=== PATIENT | female | born 1990 | race Caucasian/White ===

== ENCOUNTER 2017-05-26 19:50 | Emergency (ER) | payer OTHER ==
[~2017-05-26] VITALS: Ht 160 cm; Wt 76.4 kg
[2017-05-26 19:53] VITALS: TEMP 36.7; Ht 160 cm; Wt 76.4 kg
--- NOTE | 2017-05-26 20:21 | EMERGENCY ROOM VISIT NOTE ---
History Report prepared by Anjali: Vanessa Gaona Under the Supervision of: Dr. Herman Phillips M.D. First contact with patient: 19:59 Chief Complaint: MENTAL HEALTH EVALUATION Stated Complaint: MHU History of Present Illness The patient is a 26 year old female who presents to the Emergency Room for a mental health evaluation. The patient has a history of bipolar depression with PTSD. She has been on medication for this in the past but states that she has been off of her medication for about one year. She has been hospitalized for mental health issues in the past. She states that she was admitted voluntarily for two weeks about one year ago after a suicide attempt. The patient recently moved to the area about 3 months ago. She has been having weekly appointments with a counselor through [facility]. She saw her counselor two days ago for her weekly appointment and at that time her counselor recommended that she come to the ED for further evaluation. The patient states that she has been having increasing mood swings and night terrors. She states that, "I can't control my panic attacks any more." She reports worsening anxiety. She denies anything triggering her worsening symptoms. She has been picking at her skin and states that this is also getting worse. The patient denies suicidal or homicidal ideation. The patient states that she feels like she needs to be hospitalized at this point because she knows that her symptoms will continue to worsen if she does not go back on her medications. Source of History: patient Onset: [employer] Position: other (global) Quality: other (anxiety) Timing: worsening Note: Pt notes mood swings, night terrors, and panic attacks. Pt denies SI and HI. Review of Systems See HPI for pertinent positives & negatives. A total of 10 systems reviewed and were otherwise negative. Past Medical & Surgical Medical Problems: (1) Bipolar depression (2) History of kidney stones (3) Hx of ovarian cyst (4) PTSD (post-traumatic stress disorder) Family History Cancer Diabetes mellitus Hypertension Seizures Social History Smoking Status: Current Every Day Smoker Marital Status: in relationship Housing Status: lives with significant other Occupation Status: employed Current/Historical Medications Scheduled Trazodone Hcl (Trazodone), 25 MG PO QD Allergies Coded Allergies: Apple (Verified Allergy, Unknown, migraine, 05/26/17) [place] (Verified Allergy, Unknown, swelling, 05/26/17) [place] (Verified Allergy, Unknown, swelling, 05/26/17) Eggs or Egg-derived Products (Verified Adverse Reaction, Unknown, migraines, 05/26/17) Physical Exam Vital Signs Date Time Temp Pulse Resp B/P (MAP) Pulse Ox O2 Delivery O2 Flow Rate FiO2 05/27/17 00:29 87 18 114/86 98 05/26/17 21:53 76 18 111/57 98 Room Air 05/26/17 19:53 36.7 86 18 127/82 98 Room Air Physical Exam GENERAL: Patient is in no acute distress. Slightly tearful at times discussing her situation HEENT: No acute trauma, normocephalic atraumatic, mucous membranes moist, no nasal congestion, no scleral icterus. NECK: No stridor, no adenopathy, no meningismus, trachea is midline. LUNGS: Clear to auscultation bilaterally, no wheeze, no rhonchi, breath sounds equal. HEART: Without murmurs gallops or rubs, regular rate and rhythm. ABDOMEN: Soft, nontender, bowel sounds positive, no hernias, no peritonitis. EXTREMITIES: No cyanosis or edema, full range of motion of all the joints without pain or difficulty, no signs for acute trauma. NEUROLOGIC: Oriented x 3, no acute motor or sensory deficits, no focal weakness. SKIN: No rash, no jaundice, no diaphoresis. PSYCH: Cooperative and voluntary, admits to suicidal thoughts with no set plan. Medical Decision & Procedures Laboratory Results 05/26/17 20:57 05/26/17 20:57 Test 05/26/17 20:20 05/26/17 20:57 Urine Color YELLOW Urine Appearance CLEAR (CLEAR) Urine pH 6.0 (4.5-7.5) Urine Specific [place] 1.020 (1.000-1.030) Urine Protein NEG (NEG) Urine Glucose (UA) NEG (NEG) Urine Ketones NEG (NEG) Urine Occult Blood NEG (NEG) Urine Nitrite NEG (NEG) Urine Bilirubin NEG (NEG) Urine Urobilinogen NEG (NEG) Urine Leukocyte Esterase NEG (NEG) Urine Opiates Screen NEG (NEG) Urine Methadone, Qualitative NEG (NEG) Urine Barbiturates NEG (NEG) Urine Phencyclidine (PCP) Level NEG (NEG) Ur Amphetamine/Methamphetamine NEG (NEG) MDMA (Ecstasy) Screen NEG (NEG) Urine Benzodiazepines Screen NEG (NEG) Urine Cocaine Metabolite NEG (NEG) Urine Marijuana (THC) POS (NEG) Red Blood Count 3.97 M/uL (4.2-5.4) Mean Corpuscular Volume 84.9 fL (80-100) Mean Corpuscular Hemoglobin 27.7 pg (25-34) Mean Corpuscular Hemoglobin Concent 32.6 g/dl (32-36) RDW Standard Deviation 41.2 fL (36.4-46.3) RDW Coefficient of Variation 13.3 % (11.5-14.5) Mean Platelet Volume 10.6 fL (7.4-10.4) Anion Gap 7.0 mmol/L (3-11) Est Creatinine Clear Calc Drug Dose 107.0 ml/min Estimated GFR () 121.6 Estimated GFR (Non- 104.9 BUN/Creatinine Ratio 12.3 (10-20) Calcium Level 8.2 mg/dl (8.5-10.1) Total Bilirubin < 0.1 mg/dl (0.2-1) Aspartate Amino Transf (AST/SGOT) 10 U/L (15-37) Alanine Aminotransferase (ALT/SGPT) 16 U/L (12-78) Alkaline Phosphatase 65 U/L (45-117) Total Protein 6.6 gm/dl (6.4-8.2) Albumin 3.2 gm/dl (3.4-5.0) Globulin 3.4 gm/dl (2.5-4.0) Albumin/Globulin Ratio 0.9 (0.9-2) Thyroid Stimulating Hormone (TSH) 1.140 uIu/ml (0.300-4.500) Human Chorionic Gonadotropin, Qual NEG (NEG) Salicylates Level 3.3 mg/dl (2.8-20) Acetaminophen Level < 2 ug/ml (10-30) Ethyl Alcohol mg/dL < 3.0 mg/dl (0-3) Laboratory results reviewed by me. Medications Administered Medications (Trade) Dose Ordered Sig/Angela Route Start Time Stop Time Status Last Admin Dose Admin Trazodone HCl (Desyrel Tab) 25 mg NOW ONCE PO 05/27/17 00:15 05/27/17 00:16 DC 05/27/17 00:19 25 MG ED Course 1958: The patient was evaluated in room C3. A complete history and physical exam was performed. 0015: Trazodone HCl 25 mg PO 2300: [facility] will evaluate the patient. 0004: I discussed the patient's case with the psychiatric liaison. 0019: I reassessed the patient at this time. She is resting comfortably. I discussed the results and treatment plan with the patient. I answered all pertaining questions that she had. She expressed understanding and verbalized agreement. The patient will be discharged home and will return with worsening symptoms. Medical Decision Differential diagnoses includes drug and alcohol abuse, medication noncompliance , thyroid disorder, electrolyte imbalance, . There is no leukocytosis or concerning anemia. No significant electrolyte abnormality, kidney failure or hepatitis. The patient appears to be in a euthyroid state. testing is negative. Urinalysis does not show infection. Aspirin, Tylenol and alcohol levels are undetectable. Urine tox shows marijuana only. The patient was voluntary. She was having vague suicidal thoughts and was anxious but had no plan or intent to harm herself. She was felt medically clear to be seen by psychiatry. She was seen by the psychiatry team, the patient does not meet criteria to stay in the hospital this evening. She does feel comfortable with discharge home, she will return if worsening. She did ask for some trazodone to help with sleep, she has used this before successfully. She was given a dose of oral trazodone before discharge and a small prescription was written. Medication Reconcilliation Current Medication List: was personally reviewed by me Blood Pressure Screening Patient's blood pressure: Normal blood pressure Impression Primary Impression: Anxiety Scribe Attestation The scribe's documentation has been prepared under my direction and personally reviewed by me in its entirety. I confirm that the note above accurately reflects all work, treatment, procedures, and medical decision making performed by me. Departure Information Dispostion Home / Self-Care Prescriptions Trazodone Hcl (Trazodone) 50 Mg Tab 25 MG PO QD for 10 Days, #5 TAB Prov: Herman Phillips M.D. 05/27/17 Referrals No Doctor Assigned Forms HOME CARE DOCUMENTATION FORM, IMPORTANT VISIT INFORMATION Patient Instructions My [facility] Additional Instructions trazadone at night to help with sleep return for worsening symptoms as discussed lab testing today was all ok follow the advice of the psychiatric team that spoke with you kaden
[2017-05-26 20:39] LABS: URINE APPEARANCE CLEAR (CLEAR); URINE BILIRUBIN NEG (NEG); URINE COLOR YELLOW; URINE NITRITE NEG (NEG); UROBILINOGEN NEG (NEG); ZZUR CULT IF INDIC CLEAN CATCH NO
[2017-05-26 20:45] LABS: MANUAL MICROSCOPIC REQUIRED? NO; REVIEW REQ? NO
[2017-05-26 21:08] LABS: HEMATOCRIT 33.7 % (37-47); MEAN CELL VOLUME 84.9 fL (80-100); MEAN CORPUSCULAR HEMOGLOBIN 27.7 pg (25-34); MEAN CORPUSCULAR HGB CONC 32.6 g/dl (32-36); MEAN PLATELET VOLUME 10.6 fL (7.4-10.4); PLATELET COUNT 210 K/uL (130-400); RED BLOOD COUNT 3.97 M/uL (4.2-5.4); WHITE BLOOD COUNT 7.16 K/uL (4.8-10.8)
[2017-05-26 21:19] LABS: BENZODIAZEPINE, URINE NEG (NEG); COCAINE,URINE NEG (NEG); PHENCYCLIDINE, URINE NEG (NEG)
[2017-05-26 21:26] LABS: ALT/SGPT 16 U/L (12-78); BLOOD UREA NITROGEN 10 mg/dl (7-18); BUN/CREATININE RATIO 12.3 (10-20); CALCIUM 8.2 mg/dl (8.5-10.1); CARBON DIOXIDE 25 mmol/L (21-32); CHLORIDE 109 mmol/L (98-107); CREATININE 0.78 mg/dl (0.60-1.20); GLUCOSE 96 mg/dl (70-99); POTASSIUM 4.1 mmol/L (3.5-5.1); SODIUM 141 mmol/L (136-145)
[2017-05-26 21:37] LABS: ALB/GLOB RATIO 0.9 (0.9-2); ALKALINE PHOSPHATASE 65 U/L (45-117); AST/SGOT 10 U/L (15-37)
[2017-05-26 21:48] LABS: ACETAMINOPHEN < 2 ug/ml (10-30)
[2017-05-26 23:11] LABS: PREG INTERNAL NEGATIVE QC NEG CLEAR BACKGROUND; PREG INTERNAL POSITIVE QC POS CONTROL LINE
[2017-05-27] MEDS ORDERED: TRAZ50TA35 PO (00:10)
[2017-05-27] MEDS ORDERED: TRAZODONE HCL 50 MG TAB PO ONE (00:15)
[2017-05-27 00:29] VITALS: BP 114/86; PULSE 87; O2SAT 98
== END 2017-05-27 00:31 | disposition home or self-care (01) ==
LOC: C.EDB 19:51 → C.EDC 05-27 00:31
DX: F41.9 Anxiety disorder, unspecified (principal); F31.9 Bipolar disorder, unspecified; F43.10 Post-traumatic stress disorder, unspecified; Z83.3 Family history of diabetes mellitus; Z82.49 Family history of ischemic heart disease and other diseases of the circulatory system; Z82.0 Family history of epilepsy and other diseases of the nervous system; F17.200 Nicotine dependence, unspecified, uncomplicated

== ENCOUNTER 2017-05-27 10:12 | Emergency (ER) | payer OTHER ==
[~2017-05-27] VITALS: Ht 160 cm; Wt 75.3 kg
[~2017-05-27 10:12] MED LIST: TRAZ50TA35 PO
[2017-05-27 10:16] VITALS: TEMP 36.8; Ht 160 cm; Wt 75.3 kg
[2017-05-27 11:37] VITALS: BP 114/78; PULSE 98; O2SAT 98
--- NOTE | 2017-05-27 11:56 | EMERGENCY ROOM VISIT NOTE ---
History Report prepared by Jerryibe: Olimpia Tracy Under the Supervision of: Dr. Salinas Mcgraw D.O. First contact with patient: 11:06 Chief Complaint: MENTAL HEALTH EVALUATION Stated Complaint: MH EVALUATION, PT WAS HERE ON 05/26 History of Present Illness The patient is a 26 year old female who presents to the Emergency Room for a mental health evaluation. The patient has a history of bipolar depression. The patient states that she was in the ED last night but she was sent home because there were no open beds. She notes that she has had increasing bad nightmares, flashbacks, and mood swings. She states that she has had "not so great thinking " wants to "lay in bed and hide all day". The patient states that her therapist told the patient to come in to the ED today. She states that she can't get an appointment with a psychiatrist in [place]. The patient was previously treated as an inpatient in [place] for bipolar depression. The patient just moved from [place] to [place] 3 months ago. Source of History: patient Position: other (generalized) Review of Systems As above otherwise negative for 10 systems Past Medical & Surgical Medical Problems: (1) Bipolar depression (2) History of kidney stones (3) Hx of ovarian cyst (4) PTSD (post-traumatic stress disorder) Family History Cancer Diabetes mellitus Hypertension Seizures Social History Smoking Status: Current Every Day Smoker Marital Status: in relationship Housing Status: lives with significant other Occupation Status: employed Current/Historical Medications Scheduled Trazodone Hcl (Trazodone), 25 MG PO QD Allergies Coded Allergies: Apple (Verified Allergy, Unknown, migraine, 05/27/17) [place] (Verified Allergy, Unknown, swelling, 05/27/17) [place] (Verified Allergy, Unknown, swelling, 05/27/17) Eggs or Egg-derived Products (Verified Adverse Reaction, Unknown, migraines, 05/27/17) Physical Exam Vital Signs Date Time Temp Pulse Resp B/P (MAP) Pulse Ox O2 Delivery O2 Flow Rate FiO2 05/27/17 11:37 98 20 114/78 98 Room Air 05/27/17 10:16 36.8 91 18 130/89 98 Room Air Physical Exam CONSTITUTIONAL/VITAL SIGNS: Reviewed / noted above. GENERAL: Non-toxic in appearance. INTEGUMENTARY: Warm, dry, and [place]. HEAD: Normocephalic. EYES: without scleral icterus or trauma. ENT/OROPHARYNX: clear and moist. LYMPHADENOPATHY/NECK: Is supple without lymphadenopathy or meningismus. RESPIRATORY: Lungs clear and equal. CARDIOVASCULAR: Regular rate and rhythm. GI/ABDOMEN: Soft and nontender. No organomegaly or pulsatile mass. No rebound or guarding. Normal bowel sounds. EXTREMITIES: Warm and well perfused. BACK: No CVA tenderness. NEUROLOGICAL: Intact without focal deficits. PSYCHIATRIC: Depressed affect. MUSCULOSKELETAL: Normally developed with good muscle tone. Medical Decision & Procedures ED Course 1116: Previous medical records were reviewed. The patient was evaluated in room A5. A complete history and physical examination was performed. 11:55 arrangements made for the patient is seeing a psychiatrist in 3 days. [ Medical Decision differential includes toxic ingestions, self-mutilation, suicidal ideation, suicide attempt, depression. This is a 26-year-old female who presents to the ED with a chief complaint of bipolar disorder and depression. The patient states that she has been off her medication for one year. She states that she moved here 3 months ago from [place]. The patient feels as though she might need inpatient evaluation if she cannot came in with a psychiatrist. The patient states that there is a 90 day wait. She is currently not suicidal or homicidal. The patient arranged to see a psychiatrist in [place] by the psychiatric renal case manager. The patient was having with this. She will be seen in 3 days. She was discharged. Medication Reconcilliation Current Medication List: was personally reviewed by me Impression Primary Impression: Bipolar depression Scribe Attestation The scribe's documentation has been prepared under my direction and personally reviewed by me in its entirety. I confirm that the note above accurately reflects all work, treatment, procedures, and medical decision making performed by me. Departure Information Dispostion Home / Self-Care Referrals No Doctor, Assigned (PCP) Patient Instructions My [facility] Additional Instructions Follow-up with psychiatrist as discussed.
== END 2017-05-27 12:00 | disposition home or self-care (01) ==
LOC: C.EDB 10:13 → C.EDA 12:00
DX: F31.9 Bipolar disorder, unspecified (principal); F43.10 Post-traumatic stress disorder, unspecified; Z83.3 Family history of diabetes mellitus; Z82.49 Family history of ischemic heart disease and other diseases of the circulatory system; Z82.0 Family history of epilepsy and other diseases of the nervous system; F17.200 Nicotine dependence, unspecified, uncomplicated